=== PATIENT | male | born 2000 | race Caucasian/White ===

== ENCOUNTER 2021-10-27 17:48 | Inpatient (IN) | payer OTHER, SELFPAY ==
[2021-10-27 17:52] VITALS: BP 131/92; PULSE 102; RESP 17; TEMP 36.8; O2SAT 94
[2021-10-27 21:07] VITALS: BP 170/89; PULSE 113; RESP 20; TEMP 36.5; O2SAT 98
[2021-10-27 21:09] VITALS: BP 170/89; PULSE 113; RESP 20; TEMP 36.5; O2SAT 98
[2021-10-28 06:00] VITALS: BP 107/72; PULSE 64; RESP 20; TEMP 36.6; O2SAT 97; BMI 34.0
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
[2021-10-28] MEDS: buPROPion XL (24 HR) 150 mg Tablet PO (09:38)
[2021-10-28 14:00] VITALS: BP 109/74; PULSE 82; RESP 16; TEMP 36.7; O2SAT 97
[2021-10-28] MEDS: LORazepam 2 mg/mL INJ 1 mL IM (15:34)
[2021-10-28] MEDS: haloperidol inj 5 mg/mL INJ 1 mL IM (15:34)
[2021-10-28] MEDS: diphenhydrAMINE 50 mg/mL SDV 1mL IM (15:35)
--- NOTE | 2021-10-28 15:36 | PC.NURSE ---
BEHAVIOR PT TEARFUL AND ATTEMPTED TO RUN DOWN BATRES AND LEAVE UNIT WHEN STAFF WAS LEAVING UNIT. STAFF WAS PRESENT AND REDIRECTED PT BACK TO ROOM. PT THEN ATTEMPTED TO TRY AND GET OUT OF HIS WINDOW BY BANGING ON WINDOW. PT WAS THEN DEESCALATED VERBALLY MOMENTARILY. PT THEN WAS OUTSIDE OF HIS ROOM BECAME TEARFUL AGAIN YELLING 'I'M GOING TO HELL AND GOD WILL NEVER FORGIVE ME. PT THEN BEGAN TO HIT HIS HEAD ON DOOR FRAME, THIS NURSE WAS PRESENT AND VERBALLY REDIRECTED. PT REFUSED TO TAKE ANY MEDICATIONS STATING I WANT TO FEEL LIKE THIS TO PUNISH MYSELF. SECURITY WAS CALLED TO GIVE INJECTION OF ATIVAN, HALDOL AND BENADRYL. WHEN SECURITY AND STAFF PRESENT PT WAS EDUCATED AGAIN ON TAKING MEDICATIONS TO DECREASE ANXIETY AND PT DID AGREE TO TAKE. PT RECEIVED BENADRYL 50 MG IM IN RIGHT ARM AND 2MG ATIVAN AND 5 MG OF HALDOL IN LEFT ARM. PT WAS THEN MOVED TO [facility] TO ENSURE HE HAS NO ROUTE TO OPE.
--- NOTE | 2021-10-28 15:38 | PC.NURSE ---
1530 Pt experiencing anxiety, tearful, tried to run off of unit, tried to self harm by banging his head on the window in his room. Security was called just for an apperance, Administered B52, 50mg Benadryl IM in Right Deltoid, 2 mg Ativan IM in Left Deltoid, 5mg Haldol IM in Left Deltoid.
[2021-10-28 19:53] VITALS: RESP 18
[2021-10-29 06:00] VITALS: BP 99/61; PULSE 74; RESP 17; TEMP 36.5; O2SAT 98
[2021-10-29] MEDS: buPROPion XL (24 HR) 150 mg Tablet PO (08:59)
[2021-10-29] MEDS: OLANZapine 5 mg ODT PO (11:31)
[2021-10-29 14:00] VITALS: BP 115/78; PULSE 104; RESP 16; TEMP 36.6; O2SAT 98
--- NOTE | 2021-10-29 16:31 | P.NPUPN_ITS ---
Subjective NPU Subjective: This is a 21-year-old white male admitted voluntarily with depression and anxiety along with suicidal thoughts. Patient had reported a past history of a diagnosis of Asperger's disorder. He reports that he had previously also been treated for ADHD. He reports having had chronic worry that has been unable to be managed. He reports that at times he feels that his worries are overwhelming. He had reported a past history of having problems with other antidepressants. He reports no side effects from the Wellbutrin that was started yesterday. Mental Status Exam MSE Comments: his is an overweight versus obese white male laying in bed with hospital scrubs on and adequate grooming and eye contact. No abnormal movements except for mild psychomotor retardation. Cooperative with exam in mild distress. Speech was normal rate and volume. Mood described as a little down, affect is congruent. Thought process, organized. Thought content: patient denies suicidal or homicidal ideation, endorses paranoia sometimes but no delusions noted, and denies auditory or visual hallucinations. Attention and concentration are intact and memory appeared reliable but none were formally tested. He is alert and oriented three times. Insight and judgment fair. Impulse control is fair. Vitals/I&O/Wt Last Vital Signs Temp 97.9 F 10/29/21 14:00 Pulse 104 H 10/29/21 14:00 Resp 16 10/29/21 14:00 BP 115/78 10/29/21 14:00 Pulse Ox 98 10/29/21 14:00 Weight last 48 hrs Weight 104.326 kg Weight 104.496 kg A&P Assessment and plan (1) Major depressive disorder, recurrent: Status: Acute Plan Plan This is a 21 year old white male with a history of trauma and genetic loading for mental health, addiction and lethality issues who presents reporting he has been experiencing worsening depression over the past week and open to changes in his medications at this time. 1. Continue Wellbutrin XL 150mg in am. 2. Encourage individual, group and milieu therapy 3. Continue q-15 minute check for safety 4. Recommend sober living treatment at the highest level of care to which the patient is willing to commit. Involuntary Hold Information 96 Hour Hold: 96 Hour Involuntary Admission: No Attestations NPU Medical Necessity Statement*: Inpatient hospitalization is medically necessary and the clinically appropriate intervention at this time. We will monitor medications and make changes as indicated. Patient will be in the hospital for over two midnights. Likely length of stay is three to five days. Coding Level of Care Code Established Pt Acute Fabrication Operator for Chg Fwd Patient Type Established History Problem Focused Exam Problem Focused Medical Decision Making Straight Forward Diagnoses Major depressive disorder, recurrent F33.9
[2021-10-29 20:08] VITALS: BP 96/61; PULSE 92; RESP 16; O2SAT 95
[2021-10-29] MEDS: trazodone 100 mg Tablet PO (20:28)
[2021-10-30 05:40] VITALS: BP 95/64; PULSE 83; RESP 17; TEMP 36.6; O2SAT 97
[2021-10-30] MEDS: hyDROXYzine 25 mg Capsule 50 MG PO (08:45)
[2021-10-30] MEDS: buPROPion XL (24 HR) 150 mg Tablet PO (08:47)
[2021-10-30 13:47] VITALS: BP 95/64; PULSE 83; RESP 17; TEMP 36.6; O2SAT 97
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
[2021-10-30 14:15] VITALS: BP 95/64; PULSE 83; RESP 17; TEMP 36.6; O2SAT 97
== END 2021-10-30 14:40 | disposition home or self-care (01) | DRG 885 ==
PROVIDERS: Admitting Provider Psychiatry & Neurology Psychiatry; Visit Provider Psychiatry & Neurology Psychiatry
DX: F31.81 Bipolar II disorder (principal); F41.9 Anxiety disorder, unspecified; Z91.52 Personal history of nonsuicidal self-harm; Z81.8 Family history of other mental and behavioral disorders; Z81.4 Family history of other substance abuse and dependence; Z62.811 Personal history of psychological abuse in childhood
CPT/HCPCS: 96372; 97150; 97165; J1200; J1630; J2060